=== PATIENT | female | born 1985 | race Caucasian/White ===

== ENCOUNTER 2019-07-18 12:56 | Emergency (ER) | payer SELFPAY ==
[~2019-07-18] VITALS: Ht 177.8 cm; Wt 70.0 kg
[2019-07-18 13:02] VITALS: BP 133/104
== END 2019-07-18 13:41 | disposition left against medical advice (07) ==
LOC: ER 12:56
DX: F10.20 Alcohol dependence, uncomplicated (principal); Z53.21 Procedure and treatment not carried out due to patient leaving prior to being seen by health care provider; Y90.8 Blood alcohol level of 240 mg/100 ml or more

== ENCOUNTER 2020-05-24 07:20 | Emergency (ER) | payer SELFPAY ==
[~2020-05-24] VITALS: Ht 165.1 cm; Wt 68.1 kg
[2020-05-24 07:25] VITALS: BP 130/70
== END 2020-05-24 08:36 | disposition left against medical advice (07) ==
LOC: ER 07:20
DX: Z53.21 Procedure and treatment not carried out due to patient leaving prior to being seen by health care provider (principal)